=== PATIENT | female | born 1945 | race Hispanic/Latino ===

== ENCOUNTER 2017-02-27 08:27 | Emergency (ER) | payer MEDICARE, OTHER ==
[2017-02-27 08:41] VITALS: RESP 18; TEMP 97; O2SAT 100
[2017-02-27] MEDS ORDERED: Iohexol 240 (50 ml) PO ONE (08:47)
[2017-02-27] MEDS ORDERED: Sodium Chloride 0.9% 500 ML IV STA (08:47)
[2017-02-27] MEDS ORDERED: Iohexol 240 (50 ml) ONE (08:50)
--- NOTE | 2017-02-27 08:54 | ED PDOC ---
HPI: Abdomen Time Seen by Provider: 02/27/17 08:41 Chief Complaint (Nursing): GI Problem Chief Complaint (Provider): Diarrhea History Per: Patient History/Exam Limitations: no limitations Onset/Duration Of Symptoms: Days (chronic (2 months)) Current Symptoms Are (Timing): Still Present Additional Complaint(s): Malu Helm is a 71 year old female with a past medical history of high blood pressure presenting to the ED for an evaluation of chronic episodes of intermittent diarrhea occurring for 2 months prior to arrival. The patient states she visited [facility] where she was seen by Dr. Spencer twice and was sent to this ED for further evaluation. She denies any bloody stools, nausea, vomiting, chest pain, shortness of breath, weakness in extremities, back pain, cough, fever, urinary symptoms, sick contacts, or any recent travel. Of note, the patient is noncompliant with blood pressure medication due to side effects. PMD: Delroy Spencer MD Past Medical History Reviewed: Historical Data, Nursing Documentation, Vital Signs Vital Signs: Last Vital Signs Temp 97 F L 02/27/17 08:40 Pulse 72 02/27/17 12:56 Resp 18 02/27/17 08:40 BP 193/110 H 02/27/17 12:56 Pulse Ox 100 02/27/17 08:57 - Medical History PMH: HTN (no meds) - Family History Family History: States: No Known Family Hx - Social History Current smoker - smoking cessation education provided: Yes Alcohol: Other Drugs: Denies - Home Medications Home Medications: Ambulatory Orders Medication Instructions Recorded Naproxen [Naprosyn] 500 mg PO BID #20 tab 03/19/15 oxyCODONE/Acetaminophen [Percocet 1 ea PO Q6H PRN #12 tab 03/19/15 5/325 mg Tab] Tramadol Hydrochloride [Tramadol] 50 mg PO BID PRN #10 tab 04/05/15 Cyclobenzaprine [Cyclobenzaprine 10 mg PO Q8 PRN #9 tab 06/14/15 HCl] traMADol [Ultram] 50 mg PO TID PRN #20 tab 06/14/15 - Allergies Allergies/Adverse Reactions: Allergies Allergy/AdvReac Type Severity Reaction Status Date / Time No Known Allergies Allergy Verified 02/27/17 08:39 Review of Systems ROS Statement: Except As Marked, All Systems Reviewed And Found Negative Constitutional: Negative for: Fever Cardiovascular: Negative for: Chest Pain Respiratory: Negative for: Cough, Shortness of Breath Gastrointestinal: Positive for: Abdominal Pain, Diarrhea. Negative for: Nausea , Vomiting, Hematochezia Genitourinary Female: Negative for: Dysuria, Frequency, Incontinence Neurological: Negative for: Weakness Physical Exam - Reviewed Nursing Documentation Reviewed: Yes Vital Signs Reviewed: Yes - Physical Exam Appears: Positive for: Non-toxic, No Acute Distress Head Exam: Positive for: ATRAUMATIC, NORMOCEPHALIC Skin: Positive for: Normal Color, Warm, Dry Eye Exam: Positive for: Normal appearance, EOMI, PERRL ENT: Positive for: Normal ENT Inspection Neck: Positive for: Normal, Painless ROM Cardiovascular/Chest: Positive for: Regular Rate, Rhythm, Chest Non Tender Respiratory: Positive for: Normal Breath Sounds. Negative for: Respiratory Distress Gastrointestinal/Abdominal: Positive for: Soft, Tenderness (mild tenderness, diffusely ) Back: Positive for: Normal Inspection. Negative for: L CVA Tenderness, R CVA Tenderness Extremity: Positive for: Normal ROM. Negative for: Tenderness, Deformity Neurologic/Psych: Positive for: Alert, Oriented. Negative for: Motor/Sensory Deficits - Laboratory Results Result Diagrams: 02/27/17 09:00 02/27/17 09:00 Interpretation Of Abn Labs: 22 bun - ECG O2 Sat by Pulse Oximetry: 100 (RA) Pulse Ox Interpretation: Normal - CT Scan/US ct Other Rad Studies (CT/US): Read By Radiologist Other Rad Interpretation: no acute - Progress ED Course And Treament: 1341: Stable. AAOx3. Pain free. Tolerated PO. Fu with pcp. BP elevated, pt. not taking bp meds at home. Medical Decision Making Medical Decision Making: Time: 08:41 Impression: Intermittent diarrhea occurring for 2 months Plan: * CMP * Lipase * CBC (with differential) * CT Abd Pelvis PO & IV Contrast * Bentyl 10 mg PO * Omnipaque 240 (50 ml) PO * NS 0.9% 500 ml IV 100 mls/hr * Reevaluation Scribe Attestation: Documented by Mary Paz, acting as a scribe for Jose Beltran MD. Provider Scribe Attestation: All medical record entries made by the Scribe were at my direction and personally dictated by me. I have reviewed the chart and agree that the record accurately reflects my personal performance of the history, physical exam, medical decision making, and the department course for this patient. I have also personally directed, reviewed, and agree with the discharge instructions and disposition. Disposition - Clinical Impression Clinical Impression: Diarrhea, Abdominal pain - Patient ED Disposition Is Patient to be Admitted: No Counseled Patient/Family Regarding: Studies Performed, Diagnosis, Need For Followup - Disposition Referrals: [facility] [Outside] - 02/28/17 Disposition: Routine/Home Disposition Time: 13:42 Condition: STABLE Additional Instructions: Return if not better in 3 days. Instructions: Acute Diarrhea (ED), Acute Abdominal Pain (ED)
[2017-02-27 09:48] LABS: BASO % 0.6 % (0.0-2.0); EOS % 0.6 % (0.0-4.0); HEMATOCRIT 46.1 % (34.0-47.0); LYMPH # 2.6 K/uL (1.0-4.3); LYMPH % 39.7 % (20.0-40.0); MEAN CELL VOLUME 98.4 fl (81.0-99.0); MEAN CORPUSCULAR HEMOGLOBIN 32.3 pg (27.0-31.0); MEAN CORPUSCULAR HGB CONC 32.9 g/dL (33.0-37.0); MEAN PLATELET VOLUME 8.6 fl (7.2-11.7); MONO # 0.4 K/uL (0.0-0.8); MONO % 5.8 % (0.0-10.0); NEUT # 3.5 K/uL (1.8-7.0); NEUT % 53.3 % (50.0-75.0); WHITE BLOOD COUNT 6.6 K/uL (4.8-10.8)
[2017-02-27 09:55] LABS: ALB/GLOB RATIO 1.3 (1.0-2.1); ALKALINE PHOSPHATASE 89 U/L (38-126); ALT/SGPT 33 U/L (9-52); AST/SGOT 28 U/L (14-36); BILIRUBIN,TOTAL 1.1 mg/dl (0.2-1.3); BLOOD UREA NITROGEN 22 mg/dl (7-17); CALCIUM 9.1 mg/dL (8.4-10.2); CARBON DIOXIDE 23 mmol/L (22-30); CHLORIDE 105 mmol/L (98-107); GFR AFRICAN-AMERICAN > 60; GLUCOSE,RANDOM 135 mg/dL (65-105); LIPASE 64 U/L (23-300); POTASSIUM 3.6 MMOL/L (3.6-5.0); SODIUM 139 mmol/l (132-148); TOTAL PROTEIN 7.6 G/DL (6.3-8.2)
[2017-02-27] MEDS ORDERED: Iohexol 300 100 ML IJ ONE (12:11)
[2017-02-27] MEDS ORDERED: Sodium Chloride 0.9% 50 ML IV ONE (12:11)
--- NOTE | 2017-02-27 13:25 | CT ---
PROCEDURE: CT Abdomen and Pelvis with contrast HISTORY: Abdominal pain COMPARISON: None. TECHNIQUE: CT scan of the abdomen and pelvis was performed after intravenous administration of contrast. Oral contrast was administered. Coronal and sagittal reformatted images were obtained. Contrast dose: 100 mL Omnipaque 3 Radiation dose: Total exam DLP = 884 mGy-cm. This CT exam was performed using one or more of the following dose reduction techniques: Automated exposure control, adjustment of the mA and/or kV according to patient size, and/or use of iterative reconstruction technique. FINDINGS: LOWER THORAX: The lung bases are clear. LIVER: The liver is normal in size. No gross lesion or ductal dilatation. GALLBLADDER AND BILE DUCTS: There are no calcified gallstones. PANCREAS: The pancreas is normal in size and there is homogeneous enhancement. There is mild atrophy of the head of the pancreas with prominence of the pancreatic duct. The body and tail of the pancreas are normal in appearance. SPLEEN: The spleen is normal in size without focal lesion. ADRENALS: Both adrenal glands are normal in size without discrete nodule. KIDNEYS AND URETERS: Both kidneys are normal in size and there is homogeneous enhance. No hydronephrosis. No solid mass. VASCULATURE: There are advanced atherosclerotic aortoiliac calcifications. No aortic aneurysm. BOWEL: The small bowel loops are normal in caliber. The colon is unremarkable. No bowel dilatation or obstruction APPENDIX: Normal appendix. PERITONEUM: Tech Unremarkable. No free fluid. No free air. LYMPH NODES: No enlarged lymph nodes. BLADDER: Partially decompressed. REPRODUCTIVE: There is a fibroid uterus with a calcified fibroid in the fundus and along the left lateral wall. BONES: There is diffuse bone demineralization and age indeterminate osteoporotic compression fractures in the T12 and L1 vertebral bodies, worse at T12. OTHER FINDINGS: None. IMPRESSION: No acute abdominal or pelvic abnormality. No evidence of bowel obstruction or acute appendicitis.
[2017-02-27 14:35] VITALS: BP 202/83; PULSE 83
== END 2017-02-27 14:48 | disposition home or self-care (01) ==
LOC: H.ER 08:27
DX: R10.9 Unspecified abdominal pain (principal); R19.7 Diarrhea, unspecified; I10 Essential (primary) hypertension
CPT/HCPCS: 74177; 80053; 83690; 85025; 96360; 96361; 99283; J7040; Q9966; Q9967